=== PATIENT | male | born 1975 ===

== ENCOUNTER 2017-03-10 18:11 | Emergency (ER) | payer MEDICAID, OTHER ==
[2017-03-10 18:40] VITALS: BP 147/87; PULSE 65; RESP 18; TEMP 99.1; O2SAT 98
[2017-03-10] MEDS ORDERED: TDAP Vaccine 0.5 mL Syr IM ONE (20:14)
--- NOTE | 2017-03-10 20:17 | ED PDOC ---
Arrival/HPI - General Chief Complaint: Upper Extremity Problem/Injury Time Seen by Provider: 03/10/17 20:11 Historian: Patient, Other (Girlfriend) - History of Present Illness Time/Duration: Other (2 days) Symptom Onset: Sudden Symptom Course: Unchanged Quality: Aching Severity Level: Moderate Associated Symptoms (Text): 03/10/17 20:15 Patient was walking up the stairs 2 days ago carrying a heavy object when he tripped and fell forward smashing his dominant right hand between the object and a step. He suffered an abrasion over his little finger dorsal MCP joint. There is tenderness swelling and ecchymosis. Past Medical History - Infectious Disease Hx of Infectious Diseases: None - Psychiatric Hx Substance Use: No - Anesthesia Hx Anesthesia: Yes Hx Anesthesia Reactions: No Family/Social History - Physician Review Nursing Documentation Reviewed: Yes Family/Social History: Unknown Family HX Smoking Status: Former Smoker Hx Alcohol Use: No Hx Substance Use: No Allergies/Home Meds Allergies/Adverse Reactions: Allergies No Known Allergies Allergy (Verified 03/10/17 18:40) Review of Systems - Physician Review All systems were reviewed & negative as marked: Yes Physical Exam Vital Signs Temp Pulse Resp BP Pulse Ox 03/10/17 18:37 99.1 F 65 18 147/87 98 Temperature: Afebrile Blood Pressure: Normal Pulse: Regular Respiratory Rate: Normal Appearance: Positive for: Well-Appearing, Non-Toxic, Uncomfortable Pain Distress: Mild Mental Status: Positive for: Alert and Oriented X 3 - Systems Exam Upper Extremity: Present: Normal ROM, NORMAL PULSES, Tenderness, Swelling, Neurovascularly Intact, Other (dorsal little finger MCP abrasion). No: Erythema , Deformity Medical Decision Making ED Course and Treatment: 03/10/17 20:57 Patient has his own splint. 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 Ulcer: No History Surgical Site Infection Following: None - Disposition Have Diagnosis and Disposition been Completed?: Yes Diagnosis: Hand contusion, Hand abrasion Disposition: HOME/ ROUTINE Disposition Time: 20:57 Patient Plan: Discharge Condition: GOOD Discharge Instructions (ExitCare): Contusion in Adults (ED), Abrasion (ED) Additional Instructions: Rest ice and elevation. Follow-up with PMD. Follow-up in ER as needed. Prescriptions: Tramadol HCl [Ultram] 50 mg PO Q6 PRN #10 tab PRN Reason: Pain Referrals: Fran Jones MD [Primary Care Provider] - Follow up with primary Forms: [email or web address] ([place])
--- NOTE | 2017-03-11 16:53 | RAD ---
PROCEDURE: Right Hand Radiographs. HISTORY: trauma COMPARISON: None. FINDINGS: BONES: There is a small fracture fragment adjacent to the ulnar side of the hamate. This is also seen dorsal to the hamate on the lateral view. JOINTS: Normal. No osteoarthritic changes. SOFT TISSUES: Normal. OTHER FINDINGS: None. IMPRESSION: There is a small fracture fragment adjacent to the ulnar side of the hamate. This is also seen dorsal to the hamate on the lateral view.
== END 2017-03-10 21:08 | disposition home or self-care (01) ==
LOC: MERGE 18:11 → ED 18:11
DX: S60.221A Contusion of right hand, initial encounter (principal); S60.511A Abrasion of right hand, initial encounter; W10.9XXA Fall (on) (from) unspecified stairs and steps, initial encounter; Y93.01 Activity, walking, marching and hiking; Z87.891 Personal history of nicotine dependence; Z23 Encounter for immunization